=== PATIENT | female | born 1965 | race Hispanic/Latino ===

== ENCOUNTER 2016-11-09 10:38 | Observation (INO) | payer BC ==
--- NOTE | 2016-11-09 11:01 | ED PDOC ---
Arrival/HPI - General Chief Complaint: Dizziness/Lightheaded Time Seen by Provider: 11/09/16 10:49 - History of Present Illness Narrative History of Present Illness (Text): 11/09/16 12:00 51yo female with hx of CAD, with lightheadedness and near-syncopal sensation which started this morning. States she has no cp, denies n/v, denies dizziness. States she has vertigo, but these symptoms feel different, and meclizine did not help. No other complaints. Past Medical History - Provider Review Nursing Documentation Reviewed: Yes - Infectious Disease Hx of Infectious Diseases: None - Tetanus Immunization Tetanus Immunization: Unknown - Reproductive Menopause: Yes - Cardiac Hx Cardiac Disorders: Yes Hx ME: Yes Hx Hypertension: Yes - Pulmonary Hx Chronic Obstructive Pulmonary Disease (COPD): Yes (HX SMOKING) - HEENT Hx HEENT Disorder: Yes (eyeglasses) - Renal Hx Renal Disorder: No - Endocrine/Metabolic Hx Endocrine Disorders: No - Hematological/Oncological Hx Anemia: Yes Other/Comment: MENIERES - Musculoskeletal/Rheumatological Hx Falls: No - Gastrointestinal Hx Gastrointestinal Disorders: No - Genitourinary/Gynecological Hx Genitourinary Disorders: Yes (Fibroids/ Vaginal bleeding) - Psychiatric Hx Anxiety: Yes Hx Panic Disorder: Yes Hx Substance Use: No - Surgical History Hx Section: Yes Hx Coronary Stent: Yes - Anesthesia Hx Anesthesia Reactions: No Hx Malignant Hyperthermia: No - Suicidal Assessment Feels Threatened In Home Enviroment: No Family/Social History Family/Social History: Unknown Family HX Smoking Status: Former Smoker Hx Alcohol Use: No Hx Substance Use: No Hx Substance Use Treatment: No Allergies/Home Meds Allergies/Adverse Reactions: Allergies No Known Allergies Allergy (Verified 11/09/16 10:47) Home Medications: Home Meds Medication Instructions Recorded Confirmed Aspirin [Aspir 81] 81 mg PO DAILY 08/20/13 11/09/16 Atorvastatin [Lipitor] 40 mg PO DAILY 08/20/13 11/09/16 Furosemide [Lasix] 40 mg PO DAILY 08/20/13 11/09/16 Metoprolol Succinate [Metoprolol 50 mg PO DAILY 08/20/13 11/09/16 Succinate] ALPRAZolam [Xanax] 0.25 mg PO DAILY 06/18/15 11/09/16 Clopidogrel [Plavix] 75 mg PO DAILY 06/18/15 11/09/16 Potassium Chloride [Klor-Con 10 meq PO DAILY 06/18/15 11/09/16 Sprinkle] Ramipril [Altace] 1.25 mg PO DAILY 06/18/15 11/09/16 Ezetimibe [Ezetimibe] 10 mg PO DAILY 11/09/16 11/09/16 Meclizine [Antivert] 25 mg PO TID PRN 11/09/16 11/09/16 busPIRone [Buspar] 10 mg PO DAILY 11/09/16 11/09/16 Review of Systems - Physician Review All systems were reviewed & negative as marked: Yes Physical Exam - Physical Exam Narrative Physical Exam (Text): 11/09/16 12:11 - Review of Systems Constitutional: Normal. absent: Fatigue, Weight Change, Fevers Eyes: Normal ENT: denies sore throat, denies tristhmus Respiratory: Normal. absent: SOB, Cough, Sputum Cardiovascular: near syncope. absent: Chest Pain, Syncope Gastrointestinal: Normal. absent: Abdominal Pain, Diarrhea, Nausea, Vomiting Genitourinary: Normal. absent: Dysuria, Frequency, Hematuria, vaginal bleeding Musculoskeletal: Normal. absent: Arthralgias, Back Pain, Neck Pain Skin: no rashes, no erythema Neurological: absent: Focal Weakness Endocrine: Normal Hemo/Lymphatic: Normal Psychiatric: No suicidal or homicidal ideations Physical exam Patient appears age appropriate in no distress, speaking full sentences without difficulty - Systems Exam Head: Present: Atraumatic, Normocephalic Pupils: Present: PERRL Extroacular Muscles: Present: EOMI Conjunctiva: Present: Normal Mouth: Present: Moist Mucous Membranes Neck: Present: Normal Range of Motion. No: MIDLINE TENDERNESS, Paraspinal Tenderness Respiratory/Chest: Present: Clear to Auscultation, Good Air Exchange. No: Respiratory Distress, Accessory Muscle Use, Tachypneic Cardiovascular: Present: Regular Rate and Rhythm, Normal S1, S2, Peripheal Pulses Present. No: Murmurs Abdomen: Present: Normal Bowel Sounds. No: Tenderness, Distention, Peritoneal Signs, Rebound, Guarding Back: Present: Normal Inspection. No: Midline Tenderness, Paraspinal Tenderness Upper Extremity: Present: Normal Inspection. No: Cyanosis, Edema Lower Extremity: Present: Normal Inspection. No: Edema Neurological: Present: GCS=15, Speech Normal, cranial nerves II through XII fully intact with no cerebellar abnormality, neurosensory fully intact. No focal neurological deficits. Skin: Present: Warm, Dry, Normal Color. No: Rashes Lymphatic: Present: OX3, NI, NC Psychiatric: Present: Alert, Oriented x 3, Normal Insight, Normal Concentration Vital Signs Reviewed: Yes Vital Signs Temp Pulse Resp BP Pulse Ox 11/09/16 12:28 98.1 F 83 17 146/74 97 11/09/16 10:48 99.1 F 102 H 20 148/78 99 Temperature: Afebrile Blood Pressure: Normal Pulse: Tachycardic Respiratory Rate: Normal Appearance: Positive for: Well-Appearing Pain Distress: None Mental Status: Positive for: Alert and Oriented X 3 Medical Decision Making ED Course and Treatment: 11/09/16 11:00 previous records reviewed, pt had a stress test on 06/23, was read as abnormal, no changes vs 201411/09/16 12:19 EKG shows normal sinus 97bpm, no st-segment elevations, normal intervals. interpreted by me. 11/09/16 13:[address] Ramos, covering Dr. Montano, agrees with tele obs. Melchor Amaro and Nayely on consult pt aware of and agrees with plan - Lab Interpretations Lab Results: 11/09/16 11:26 11/09/16 11:26 Lab Results 11/09/16 11:26: Sodium 142, Potassium 3.6, Chloride 107, Carbon Dioxide 23, Anion Gap 16, BUN 18, Creatinine 0.8, Est GFR ( Amer) > 60, Est GFR (Non- Af Amer) > 60, Random Glucose 112 H, Calcium 9.2, Total Bilirubin 0.5, AST 29, ALT 43, Alkaline Phosphatase 152 H, Lactate Dehydrogenase 481, Total Creatine Kinase 76, Troponin I < 0.01, Total Protein 7.1, Albumin 4.3, Globulin 2.8, Albumin/Globulin Ratio 1.5 11/09/16 11:26: PT 10.6, INR 0.98, APTT 28.0 11/09/16 11:26: WBC 5.8 D, RBC 4.11, Hgb 11.8 L, Hct 35.9 L, MCV 87.3, MCH 28.7 , MCHC 32.9, RDW 13.1, Plt Count 188, MPV 11.8 H, Gran % 70.2 H, Lymph % (Auto) 21.7 L, Gentry % (Auto) 6.2 H, Eos % (Auto) 1.6, Baso % (Auto) 0.3, Gran # 4.07, Lymph # 1.3, Gentry # 0.4, Eos # 0.1, Baso # 0.02 - RAD Interpretation Radiology Orders: 11/09/16 11:08 CHEST PORTABLE [RAD] Stat Disposition/Present on Arrival - Present on Arrival Any Indicators Present on Arrival: No History of DVT/PE: No History of Uncontrolled Diabetes: No Urinary Catheter: No History of Decub. Ulcer: No History Surgical Site Infection Following: None - Disposition Have Diagnosis and Disposition been Completed?: Yes Diagnosis: Near syncope Disposition: HOSPITALIZED Disposition Time: 13:19 Patient Plan: Observation Patient Problems: Current Active Problems Problem Status Onset Near syncope Acute Condition: FAIR Referrals: Prince Aviles MD [Primary Care Provider] - Follow up with primary Forms: [employer] (Stateless)
[2016-11-09 11:30] LABS: BASO # 0.02 K/mm3 (0.0-2.0); BASO % 0.3 % (0.0-3.0); EOS # 0.1 (0.0-0.7); EOS % 1.6 % (1.5-5.0); GRAN # 4.07 (1.4-6.5); GRAN % 70.2 % (50.0-68.0); HEMATOCRIT 35.9 % (36.0-48.0); LYMPH # 1.3 (1.2-3.4); LYMPH % 21.7 % (22.0-35.0); MEAN CELL VOLUME 87.3 fl (80.0-105.0); MEAN CORPUSCULAR HEMOGLOBIN 28.7 pg (25.0-35.0); MEAN CORPUSCULAR HGB CONC 32.9 g/dl (31.0-37.0); MEAN PLATELET VOLUME 11.8 fl (7.0-11.0); MONO # 0.4 (0.1-0.6); MONO % 6.2 % (1.0-6.0); RED CELL DISTRIBUTION WIDTH 13.1 % (11.5-14.5); WHITE BLOOD COUNT 5.8 10^3/ul (4.5-11.0)
[2016-11-09 11:39] LABS: ALB/GLOB RATIO 1.5 (1.1-1.8); ALKALINE PHOSPHATASE 152 U/L (38-126); ALT/SGPT 43 U/L (7-56); AST/SGOT 29 U/L (14-36); BILIRUBIN,TOTAL 0.5 mg/dL (0.2-1.3); BLOOD UREA NITROGEN 18 mg/dL (7-21); CALCIUM 9.2 mg/dL (8.4-10.5); CARBON DIOXIDE 23 mmol/L (21-33); CHLORIDE 107 mmol/L (98-107); GFR AFRICAN-AMERICAN > 60; GLUCOSE,RANDOM 112 mg/dL (70-110); POTASSIUM 3.6 mmol/L (3.6-5.0); SODIUM 142 mmol/L (132-148); TOTAL PROTEIN 7.1 g/dL (5.8-8.3)
[2016-11-09 11:41] LABS: INR 0.98 (0.93-1.08)
[2016-11-09 12:01] LABS: TROPONIN I < 0.01 ng/mL
--- NOTE | 2016-11-09 12:40 | RAD ---
HISTORY: cough COMPARISON: Chest x-ray performed 06/18/15 TECHNIQUE: Chest, one view. FINDINGS: Examination limited by habitus. LUNGS: No focal consolidation. Please note that chest x-ray has limited sensitivity for the detection of pulmonary masses. PLEURA: No significant pleural effusion identified. No definite pneumothorax . CARDIOVASCULAR: Heart size appears within normal limits. OSSEOUS STRUCTURES: No acute osseous abnormality identified. VISUALIZED UPPER ABDOMEN: Unremarkable. OTHER FINDINGS: None. IMPRESSION: No focal consolidation, significant pleural effusion, or definite pneumothorax identified.
[2016-11-09 15:16] VITALS: BMI 36.8
[2016-11-09] MEDS: Potassium Chloride 10 mEq ER Tab PO SCH (18:17)
[2016-11-09] MEDS: Metoprolol Succinate 50 mg XL Tab PO SCH (18:17)
[2016-11-10 02:29] VITALS: RESP 20
[2016-11-10 05:43] VITALS: TEMP 97.8; O2SAT 96
--- NOTE | 2016-11-10 07:30 | CARD ---
APPROVED REPORT EKG Measurement Heart [id number] AL [id number] <Conclusion> Normal sinus rhythm Cannot rule out Inferior infarct, age undetermined Abnormal ECG
[2016-11-10] MEDS: Potassium Chloride 10 mEq ER Tab PO SCH (08:18)
[2016-11-10] MEDS: Metoprolol Succinate 50 mg XL Tab PO SCH (08:18)
[2016-11-10 10:12] VITALS: BP 122/63
[2016-11-10 10:32] VITALS: PULSE 86
--- NOTE | 2016-11-10 10:34 | HP ---
CHIEF COMPLAINT AND HISTORY OF PRESENT ILLNESS: This is a 51-year-old female who is coming into the hospital with complaints of lightheadedness, near syncope. She said that she woke up in the morning and started having these symptoms. She does have a history of vertigo and said that she took meclizine, but it did not help. She felt that the dizziness was different from the dizziness she normally has. She had no chest pain, no blurred vision, no nausea, no vomiting, no abdominal pain, no back pain, no dysuria or frequency, no nocturia. REVIEW OF SYSTEMS: All other review of symptoms is within normal limits except what is mentioned. ALLERGIES: NO KNOWN DRUG ALLERGIES. HOME MEDICATIONS: Aspirin, Lipitor, Lasix, metoprolol, Xanax, Plavix, Altace, Antivert, BuSpar and ezetimibe. PAST MEDICAL HISTORY: 1. Hypertension. 2. Dyslipidemia. 3. Coronary artery disease. 4. Vertigo. 5. COPD. 6. Diabetes type 2. 7. NSTEMI. PAST SURGICAL HISTORY: . SOCIAL HISTORY: She was a heavy smoker in the past, but quit in 03/2013. She drinks socially. She is and lives with her . FAMILY HISTORY: Noncontributory. PHYSICAL EXAMINATION: VITAL SIGNS: Temperature is 97.8, pulse is 61, blood pressure is 110/49, respirations 20 and O2 saturation 96%. Height is 5 feet 4 inches. Weight is 215 pounds, BMI is 37. GENERAL: The patient lying in bed, uncomfortable, and in no acute distress. HEENT: Atraumatic and normocephalic. Anicteric sclerae. Moist mucosa. Harold conjunctivae. No oral lesions. NECK: No JVD, anterior and posterior adenopathy, thyromegaly, or bruits. CARDIOVASCULAR: S1 and S2 regular. No murmur, rubs, or gallop. LUNGS: Clear to auscultation bilaterally. No wheezes, rales, or rhonchi. ABDOMEN: Bowel sounds are positive. Soft, nontender and nondistended. No hepatosplenomegaly. No rebound and no guarding EXTREMITIES: No cyanosis, clubbing, or edema. NEUROLOGIC: No facial asymmetry. Tongue is midline. No uvula deviation. Power is 5/5 upper extremity and lower extremity. Sensation intact in upper extremity and lower extremity. PSYCHIATRIC: She is awake, alert and oriented x3. No anxiety or depression. She has normal affect. GENITOURINARY: No CVA tenderness. VASCULAR: 2+ pulses in the carotid pulses and pedal pulses. SKIN: No erythema or nodules SPINE: Shows normal curvature. EXTREMITIES: No cyanosis and clubbing, no edema. LABORATORY DATA: Labs have been reviewed. Hemoglobin is 11.8. The patient's chemistry shows a creatinine of 0.8. The patient's troponin is 0.01 x2. Her chest x-ray shows no focal consolidation. Her EKG done shows sinus rhythm at 97, no ST-T changes. ASSESSMENT: 1. Dizziness, most likely secondary to vertigo. 2. Chronic obstructive pulmonary disease. 3. Hypertension. 4. Diabetes type 2. 5. Coronary artery disease. 6. Obese with a body mass index of 37. 7. Dyslipidemia. PLAN: The patient is brought in as an observation. She is going to be seen by Dr. Amaro, he has cleared the patient for discharge. She is going to be on Lipitor for dyslipidemia. She is going to continue her Altace. She is on Lasix daily. She is going to be on Xanax as needed. She is on a heart-healthy diet. We will discharge the patient to home, to follow up as an outpatient with her primary care doctor. CONDITION: Stable. ACTIVITY: Increase as tolerated. Vance Ramos MD
--- NOTE | 2016-11-10 19:27 | CON ---
DATE: 11/10/2016 CARDIOLOGY PHYSICIAN: Zach Amaro MD REASON FOR CONSULTATION: Followup cardiac evaluation, history of coronary artery disease, history of non-STEMI, obesity, hypertension, hyperlipidemia, admitted with palpitation and near syncope. BRIEF CLINICAL HISTORY: This is a 51-year-old female with past medical history significant for coronary artery disease, status post non-STEMI in 2012 and subsequently underwent cardiac catheterization and angioplasty of LAD and circumflex, then the patient had a staged RCA of PTCA in 03/2013. Admitted yesterday, status post anxiety disorder, feeling very shaky, jittery, shortness of breath and then just tiredness. Denies any chest pain. PAST MEDICAL HISTORY: Significant for coronary artery disease, status post non-STEMI, hypertension, hyperlipidemia, anxiety disorder, and the history of PTCA of LAD and circumflex in 03/08/2013, and then staged PTCA of RCA in 03/20/2013, and hypertension, hyperlipidemia, obesity, and non-STEMI as mentioned above. Previous cardiac workup as follows, the patient had echocardiography in 06/20/2015 that showed ejection fraction of 55-60%, trace aortic regurgitation, trace [id number] mitral regurgitation, mild tricuspid regurgitation with RV systolic pressure of 40 with ejection fraction is 55-60%. The patient had stress test 06/20/2015 that showed probably abnormal stress myocardial study, study, no reversible ischemia, ejection fraction of 56% when compared from 09/07/2015, the scan finding is similar. History of non-STEMI and a history of cardiac catheterization on 03/08/2013 when the patient presented with non-STEMI. At that time, the patient had a stent was done in proximal circumflex, proximal LAD, dated 03/08/2013, and then patient underwent staged PTCA of RCA 03/20/2013. The patient had a MUGA scan done on 09/10/2013 that showed ejection fraction of 57% significantly improvement in ejection fraction because at the first time where the patient had non-STEMI and PTCA of LAD and circumflex, at that time ejection fraction reported 35-40% dated 03/08/2013 . Later on, the LV function significantly improved on MUGA scan, most recently stress test dated 06/20/2015, ejection fraction reported 56% as well as an echo also 55-60% dated 06/20/2015. SOCIAL HISTORY: History of heavy smoking in the past with no history of drinking. and lives with her . CURRENT MEDICATIONS: The patient is taking Xanax 0.25 mg, BuSpar 15 mg, metoprolol 50 mg twice a day, meclizine (Antivert) 25 mg daily, Lasix 40 mg daily, Zetia 10 mg daily, Plavix 75 mg daily, atorvastatin 40 mg daily, baby aspirin 81 mg daily, and Xanax 0.25 mg daily. REVIEW OF SYSTEMS: As per HPI. PHYSICAL EXAMINATION: As follows. VITAL SIGNS: Temperature afebrile, heart rate 71, and blood pressure 118/70. HEENT: PERRLA. Extraocular muscles intact. NECK: Supple. No carotid bruit or thyromegaly. CHEST: Clear to auscultation. HEART: S1 and S2, regular. ABDOMEN: Soft. EXTREMITIES: Clubbing and cyanosis negative. LABORATORY DATA: Blood workup as follows; WBC is 5.2, hemoglobin 11.8, hematocrit 35.9, platelet count 188. Chemistry shows sodium 140, potassium 3.6, chloride 107, carbon dioxide 23, anion gap of 15, BUN 18, creatinine 0.8, total protein 0.01 x2 negative. TSH less than 0.02, T4 24.7, T3 2.34. EKG showed normal sinus. No acute ST-T changes noted. IMPRESSION: No evidence of acute myocardia infarction, history of coronary artery disease, history of non-ST elevation myocardial infarction, history of stent and a percutaneous transluminal coronary angioplasty of left anterior descending and circumflex on 04/08/2012, history of percutaneous transluminal coronary angioplasty and a stent in 03/08/2013 and staged percutaneous transluminal coronary angioplasty of right coronary artery in 03/2013, stress test essentially negative. RECOMMENDATIONS: Continue current treatment. The patient is okay to be discharged following the outpatient. Followup thyroid function and look for if the patient is on any Synthroid or not. Follow up thyroid function, the patient is off amiodarone. We will follow with you. No evidence of acute AL, but patient needs follow up thyroid function and monitor the patient needs. If she is not on Levoxyl, then patient needs follow up thyroid function and may need to start Tapazole because in 2016, the patient had a similar thyroid profile. We will follow with you and discuss with Dr. Montano. No further cardiac workup is planned at this time. No evidence of acute AL. Thank you Dr. Montano for providing us the opportunity in taking care of patient, Reed. Zach Amaro MD
== END 2016-11-10 11:43 | disposition home or self-care (01) ==
LOC: ED 10:38 → ERH 13:35 → 2RSO 14:28
PROVIDERS: ADMIT Internal Medicine Nephrology; ATTEND Internal Medicine Nephrology
DX: R55 Syncope and collapse (principal); R42 Dizziness and giddiness; J44.9 Chronic obstructive pulmonary disease, unspecified; I10 Essential (primary) hypertension; E11.9 Type 2 diabetes mellitus without complications; I25.10 Atherosclerotic heart disease of native coronary artery without angina pectoris; E78.5 Hyperlipidemia, unspecified; I25.2 Old myocardial infarction; F41.9 Anxiety disorder, unspecified; E66.9 Obesity, unspecified; Z68.37 Body mass index [BMI] 37.0-37.9, adult; Z79.82 Long term (current) use of aspirin; Z87.891 Personal history of nicotine dependence; Z95.5 Presence of coronary angioplasty implant and graft
CPT/HCPCS: 36415; 71010; 80053; 82550; 83615; 84484; 85025; 85610; 85730; 93005; 99285; G0378